=== PATIENT | female | born 1990 | race Caucasian/White ===

== ENCOUNTER 2016-06-26 00:12 | Outpatient (CLI) | payer BC, OTHER ==
[~2016-06-26] VITALS: Ht 172.7 cm; Wt 80.0 kg
[2016-06-26 01:17] LABS: BASO % 0.2 % (0.0-1.0); EOS # 0.2 K/mm3 (0.0-0.50); EOS % 1.8 % (0.0-3.0); LARGE UNSTAINED CELL # 0.2 K/mm3 (0.0-0.4); LARGE UNSTAINED CELL % 2.2 % (0.0-4.0); LYMPH # 1.4 K/mm3 (1.5-6.5); MEAN CORPUSCULAR HEMOGLOBIN 29.5 pg (27.0-33.0); MEAN CORPUSCULAR HGB CONC 33.9 g/dl (32.0-36.5); MEAN CORPUSCULAR VOLUME 86.8 fl (80.0-96.0); MONO # 0.6 K/mm3 (0.0-0.8); MONO % 5.3 % (0.0-5.0); NEUTROPHILS # 8.4 K/mm3 (1.8-7.7); NEUTROPHILS % 77.4 % (36.0-66.0); PLATELET COUNT, AUTOMATED 221 k/mm3 (150-450); RED CELL DISTRIBUTION WIDTH 12.4 % (11.5-14.5); WHITE BLOOD COUNT 10.9 K/mm3 (4.0-10.0)
[2016-06-26 01:26] LABS: INR 1.02
[2016-06-26] MEDS ORDERED: BETAMETHASONE SOLUSPAN 6MG/ML INJ 5ML (J0702) IM SCH (04:00)
[2016-06-26] MEDS ORDERED: ACETAMINOPHEN 500 MG TAB PO PRN (04:00)
[2016-06-26 07:31] VITALS: BP 118/75
[2016-06-26] MEDS ORDERED: PRENTAB9 PO (09:36)
== END 2016-06-26 09:25 | disposition home or self-care (01) ==
LOC: M LDO 00:12
PROVIDERS: ATTEND Obstetrics & Gynecology
DX: O26.853 Spotting complicating pregnancy, third trimester (principal); Z3A.34 34 weeks gestation of pregnancy
CPT/HCPCS: 36415; 59025; 76815; 85025; 85460; 85610; 85730; 96372; J0702

== ENCOUNTER 2016-06-27 06:22 | Outpatient (CLI) | payer BC, OTHER ==
[~2016-06-27 06:22] MED LIST: PRENTAB9 PO
[2016-06-27] MEDS ORDERED: BETAMETHASONE SOLUSPAN 6MG/ML INJ 5ML (J0702) IM ONE (06:30)
== END 2016-06-27 06:33 | disposition home or self-care (01) ==
LOC: M LDO 06:22
PROVIDERS: ATTEND Advanced Practice Midwife
DX: Z23 Encounter for immunization (principal); O47.03 False labor before 37 completed weeks of gestation, third trimester; Z3A.34 34 weeks gestation of pregnancy
CPT/HCPCS: 96372; J0702

== ENCOUNTER 2016-07-01 03:31 | Inpatient (IN) | payer BC, OTHER, MEDICAID ==
[~2016-07-01] VITALS: Ht 172.7 cm; Wt 80.0 kg
[2016-07-01] VITALS (25 sets, daily range): BP systolic 99–155; BP diastolic 53–98
[2016-07-01] MEDS ORDERED: RA C PO (04:00)
[2016-07-01] MEDS ORDERED: CETI1SYP16 PO (04:00)
[2016-07-01] MEDS ORDERED: COLA100C PO (04:00)
[2016-07-01] MEDS ORDERED: ACET50TA PO (04:00)
[2016-07-01] MEDS ORDERED: LACTATED RINGER'S 1000 ML IV STA (04:21)
[2016-07-01] MEDS ORDERED: LR 1,000 ML IV SCH (04:21)
[2016-07-01] MEDS ORDERED: PENICILLIN G POTASSIUM IV 5 MU in D5W MINI-BAG PLUS 100 ML IV STA (04:21)
[2016-07-01] MEDS ORDERED: PROMETHAZINE INJ 25 MG/ML VIAL (J2550) IV ONE ×3 (04:30→16:30)
[2016-07-01] MEDS ORDERED: BUTORPHANOL 2 MG/ML INJ (J0595) IV ONE ×3 (04:30→16:15)
[2016-07-01 04:58] LABS: MEAN CORPUSCULAR HEMOGLOBIN 29.9 pg (27.0-33.0); MEAN CORPUSCULAR HGB CONC 33.9 g/dl (32.0-36.5); MEAN CORPUSCULAR VOLUME 88.2 fl (80.0-96.0); RED CELL DISTRIBUTION WIDTH 12.8 % (11.5-14.5); WHITE BLOOD COUNT 13.6 K/mm3 (4.0-10.0)
[2016-07-01] MEDS: PENICILLIN G POTASSIUM IV 2.5 MU in D5W 100 ML IV SCH ×4 (09:04→20:58)
[2016-07-01] MEDS ORDERED: PROMETHAZINE INJ 25 MG/ML VIAL (J2550) IM ONE ×2 (10:00→16:15)
--- NOTE | 2016-07-01 10:00 | HPE ---
DATE OF ADMISSION: 07/01/2016 Ileana is a 26-year-old 1, para 0 at 35 weeks gestation with an estimated date of confinement (EDC) of 08/05/2016 based on last menstrual period and confirmed by first trimester ultrasound. She presents to labor and delivery today for onset of uncomfortable contractions approximately every 4 minutes. Positive bloody show. Fetus has been active. care was initiated at [facility] in the first trimester. course complicated by a history of asthma, third trimester bleeding episode approximately 5 days ago, unexplained, self limiting and resolved spontaneously. She is betamethasone complete, although Group B streptococcus (GBS) is unknown. OBSTETRICAL HISTORY: Primigravida. OBSTETRICAL LABORATORIES: Blood type O+, antibody screen negative, rubella immune, VDRL nonreactive. Urine culture no growth. Hep B surface antigen negative, HIV negative. Hep C antibody nonreactive. Gonorrhea and chlamydia negative. Quad screen negative. Gestational diabetic screening 92. GBS is unknown. PAST MEDICAL HISTORY: Asthma with rare inhaler use. Childhood varicella. SURGERIES: Cyst removed from the left breast and oral surgery. FAMILY HISTORY: Asthma, breast cancer, diabetes and hypertension. The patient is single; however, the father of the baby is at bedside and supportive. She is a prior smoker that quit approximately 3 years ago. She denies alcohol and drug use throughout the . No history of any sexually transmitted infections and denies history of abuse; physical, sexual and emotional. ALLERGIES: No known drug allergies. CURRENT MEDICATIONS: Include: - Ventolin inhaler as needed - Colace - Zyrtec - Zantac OBJECTIVE: Vital signs are stable. Temperature 97.7, pulse 90, respirations 18, blood pressure is 121/68. She is alert and oriented times three. She appears extremely uncomfortable and tenses and deep breathes with her contractions. heart rate 150 with moderate variability, positive accelerations, no decelerations observed. Contractions are not tracing on the external monitoring at this time. Her cervix is 4 to 5 cm dilated, 100% effaced, -3 station with bulging bag of water and a moderate amount of bloody show. Her abdomen is gravid, cephalic presentation confirmed by bedside ultrasound. Estimated weight 2800 grams. ASSESSMENT: 1. Intrauterine at 35 weeks gestation. heart rate category 1. 2. Active labor. PLAN: Admit the patient to labor and delivery. Laboratories have already been ordered and returned normal results, including GBS was collected this morning, although it will be approximately 48 hours before results are returned. The patient has had one dose of Stadol for labor coping and desires another dose of Stadol. She declines epidural at this time. I do anticipate a spontaneous vaginal delivery. The patient is aware of the potential for admission to the intensive care unit and Dr. Regalado, information resource consultant has been made aware of the patient's arrival to labor and delivery.
[2016-07-01] MEDS ORDERED: FENTANYL 2MCG/ML ROPIVACAINE 0.2% NACL 250 ML CADD As Ordered ONE (22:08)
[2016-07-01] MEDS ORDERED: EPIDURAL/PCA KEYS XX PRN (23:00)
[2016-07-01] MEDS ORDERED: EPIDURAL COMMENT XX SCH (23:00)
[2016-07-01] MEDS ORDERED: NALOXONE INJ 0.4 MG/1 ML VIAL (J2310) IV PRN (23:00)
[2016-07-01] MEDS ORDERED: FENTANYL/ROPIVACAINE/NACL CADD 250 ML EPIDURAL SCH (23:00)
[2016-07-01] MEDS ORDERED: diphenhydrAMINE INJ 50MG/ML VIAL (J1200) IV PRN (23:00)
[2016-07-01] MEDS ORDERED: REFRIGERATOR IV KEYS XX PRN (23:00)
[2016-07-01] MEDS ORDERED: ONDANSETRON 4MG/2ML VIAL (J2405) IV PRN (23:00)
[2016-07-01] MEDS ORDERED: LACTATED RINGER'S 1000 ML IV PRN (23:00)
[2016-07-02] VITALS (49 sets, daily range): BP systolic 99–141; BP diastolic 55–83
[2016-07-02] MEDS: PENICILLIN G POTASSIUM IV 2.5 MU in D5W 100 ML IV SCH ×2 (01:02→05:33)
[2016-07-02] MEDS ORDERED: OXYTOCIN DRIP 30 UNITS in APPROPRIATE DILUENT 1 EA IV SCH ×2 (06:30→09:26)
[2016-07-02 09:22] LABS: CORD GAS ABE V -8.6; CORD GAS HCO3 V 19.6 MEQ/L; CORD GAS O2 SAT V 51.1 %; CORD GAS PCO2 V 50.5 mmHg; CORD GAS PH V 7.207 UNITS; CORD GAS PO2 V 24.7 mmHg; CORD GAS SBC V 16.7 MEQ/L; CORD GAS TCO2 V 21.2 MEQ/L
[2016-07-02 09:23] LABS: CORD GAS ABE A -8.9; CORD GAS HCO3 A 20.8 MEQ/L; CORD GAS O2 SAT A 36.7 %; CORD GAS PCO2 A 60.4 mmHg; CORD GAS PH A 7.155 UNITS; CORD GAS PO2 A 20.7 mmHg; CORD GAS SBC A 16.1 MEQ/L; CORD GAS TCO2 A 22.7 MEQ/L
[2016-07-02] MEDS ORDERED: ACETAMINOPHEN 500 MG TAB PO PRN (09:30)
[2016-07-02] MEDS ORDERED: METHYLERGONOVINE MALEATE 0.2 MG TAB PO PRN (09:30)
[2016-07-02] MEDS ORDERED: MEASLES,MUMPS,RUBELLA VACCINE INJ (MMR-II) (90707) SC SCH (09:30)
[2016-07-02] MEDS ORDERED: DIBUCAINE 1% OINTMENT 30GM TOP PRN (09:30)
[2016-07-02] MEDS ORDERED: RHOGAM 300 MCG (1500 IU) INJ (J2790) IM SCH (09:30)
--- NOTE | 2016-07-02 10:07 | DN ---
DATE OF DELIVERY: 07/01/2016 Ileana is a 26-year-old 1, para 0-1-0-1 now, who was admitted to labor and delivery in active labor. She did have Stadol and Phenergan to cope with her labor and eventually requested an epidural. She had spontaneous rupture of membranes (SROM) for a large amount of clear fluid. She did progress to full dilation at 0735. She pushed to a normal spontaneous vaginal delivery of a live male in right occipitoanterior (JAMARCUS) position with restitution to left occipitotransverse (LOT) position over a midline episiotomy at 0856. the shoulders delivered sontaneously and corpus immediately followed. The cord was clamped times two and cut by myself. The was taken to warmer for resuscitation and evaluation by Dr. Romo, geriatrics physician. There was a spontaneous expulsion of an intact placenta with three-vessel cord by Chicas mechanism at 0901. Uterine hemostasis was achieved with uterine fundal massage and intravenous (IV) Pitocin rapid infusion. Estimated blood loss 200 mL. Perineum and vagina were inspected and noted to have bilateral labial lacerations, as well as the episiotomy. The episiotomy was repaired with 3-0 Rapide in the usual fashion. The labial laceration was repaired with interrupted sutures. The male weighed 5 pounds 15 ounces, 2682 grams. scores 7 and 9. The placenta will be sent to pathology. The family have named their son Macario, and mother plans to breastfeed her son. At the close of delivery, lap counts, instrument counts, and needle counts were correct and verified. [facility]
[2016-07-02] MEDS: IBUPROFEN 600 MG TAB PO PRN ×2 (10:24→20:07)
[2016-07-02] MEDS: DOCUSATE SODIUM 100 MG CAP PO PRN (20:07)
[2016-07-03 05:57] VITALS: BP 102/64
[2016-07-03] MEDS: PRENATAL VITAMIN TAB PO SCH (08:31)
[2016-07-03] MEDS: IBUPROFEN 600 MG TAB PO PRN ×2 (08:31→19:58)
[2016-07-03 18:17] VITALS: BP 148/79
[2016-07-03] MEDS: DOCUSATE SODIUM 100 MG CAP PO PRN (19:59)
[2016-07-04 05:30] VITALS: BP 114/65
[2016-07-04] MEDS: IBUPROFEN 600 MG TAB PO PRN (08:51)
[2016-07-04] MEDS: PRENATAL VITAMIN TAB PO SCH (08:52)
--- NOTE | 2016-07-04 09:50 | REP ---
RIGHT BREAST ULTRASOUND: 07/04/2016. Clinical history: Palpable lump right axilla when 4-5 months , just delivered. Now only tender with touch. States both grandmothers with breast cancer. She has had a prior negative left breast biopsy. Sonographic evaluation of the right axilla and axillary tail of the right breast shows no solid mass. There is heterogeneous breast tissue up to 3.9 cm long band representing axillary tail breast tissue without discrete mass, dilated duct, cyst or architectural distortion. Impression: 1. Right sided axillary tail breast tissue without discrete mass, adenopathy, cyst, dilated duct or other acute finding. This negative report should not deter further evaluation of a dominant or suspicious physical finding. BIRADS ACR category 1 negative breast ultrasound. Signed by Joe Rutledge MD 07/04/2016 05:15 P
[2016-07-04] MEDS ORDERED: IBUP-1114 PO (11:40)
== END 2016-07-04 14:00 | disposition home or self-care (01) | DRG 560 ==
LOC: M LDO 03:31 → M LDI 09:43 → M OBS 07-02 13:32
PROVIDERS: ADMIT Advanced Practice Midwife; ATTEND Advanced Practice Midwife
PROC: 10E0XZZ Delivery of Products of Conception, External Approach (ICD-10-PCS; principal; 2016-07-01)
PROC: 0W8NXZZ Division of Female Perineum, External Approach (ICD-10-PCS; 2016-07-01)
PROC: 0HQ9XZZ Repair Perineum Skin, External Approach (ICD-10-PCS; 2016-07-01)
DX: O60.14X0 Preterm labor third trimester with preterm delivery third trimester, not applicable or unspecified (principal); J45.909 Unspecified asthma, uncomplicated; O99.52 Diseases of the respiratory system complicating childbirth; Z37.0 Single live birth; Z3A.35 35 weeks gestation of pregnancy; Z80.3 Family history of malignant neoplasm of breast; Z83.3 Family history of diabetes mellitus; Z82.49 Family history of ischemic heart disease and other diseases of the circulatory system; Z83.6 Family history of other diseases of the respiratory system; Z87.891 Personal history of nicotine dependence; Z79.899 Other long term (current) drug therapy; O70.0 First degree perineal laceration during delivery

== ENCOUNTER → 2016-11-22 | Outpatient (REF) | payer OTHER, MEDICAID ==
[~2016-11-22] MED LIST changes: +ACET50TA PO; +CETI1SYP16 PO; +COLA100C5 PO; +IBUP-1114 PO; +RA C PO
== END ==
LOC: M LAB REF 17:28
PROVIDERS: ATTEND Advanced Practice Midwife
DX: Z12.4 Encounter for screening for malignant neoplasm of cervix (principal)

== ENCOUNTER 2018-11-22 12:59 | Day surgery (SDC) | payer BC, MEDICAID ==
[~2018-11-22] VITALS: Ht 172.7 cm; Wt 72.9 kg
[~2018-11-22 12:59] MED LIST changes: -ACET50TA PO; +CETI10TA8 PO; +MAPA500T2 PO; -RA C PO
[2018-11-22] MEDS ORDERED: ONDANSETRON 4MG/2ML VIAL (J2405) As Ordered ONE (13:42)
[2018-11-22] MEDS ORDERED: KETOROLAC 60 MG/2 ML VIAL (J1885) As Ordered ONE (13:42)
[2018-11-22] MEDS ORDERED: dexameTHASONE 4 MG/ML 1ML VIAL (J1100) As Ordered ONE (13:42)
[2018-11-22] MEDS ORDERED: MIDAZOLAM INJ 2 MG/2 ML VIAL (J2250) As Ordered ONE (13:43)
[2018-11-22] MEDS ORDERED: PROPOFOL 200 MG/20 ML VIAL As Ordered ONE ×2 (13:43→14:46)
[2018-11-22] MEDS ORDERED: fentaNYL 100 MCG/2 ML INJECTION (J3010) As Ordered ONE (13:43)
[2018-11-22] MEDS ORDERED: LIDOCAINE 2% INJ 100 MG/5 ML SDV (FOR ANES.) As Ordered ONE (13:43)
[2018-11-22] MEDS ORDERED: LIDOCAINE 1% SDV INJ 30 ML VIAL As Ordered ONE (13:56)
[2018-11-22] MEDS ORDERED: SCOPOLAMINE 1MG TRANSDERMAL PATCH As Ordered ONE (14:08)
[2018-11-22 14:27] LABS: HEMATOCRIT 37.5 % (36.0-47.0); HEMOGLOBIN 12.6 g/dl (12.0-15.5); MEAN CORPUSCULAR HEMOGLOBIN 30.4 pg (27.0-33.0); MEAN CORPUSCULAR HGB CONC 33.6 g/dl (32.0-36.5); MEAN CORPUSCULAR VOLUME 90.6 fl (80.0-96.0); PLATELET COUNT, AUTOMATED 250 10^3/uL (150-450); RED BLOOD COUNT 4.14 10^6/uL (4.00-5.40); WHITE BLOOD COUNT 7.6 10^3/uL (4.0-10.0)
[2018-11-22] MEDS ORDERED: SCOPOLAMINE 1MG TRANSDERMAL PATCH TOP ONE (14:30)
[2018-11-22] MEDS ORDERED: DOXYCYCLINE HYCLATE 100 MG TAB As Ordered ONE (15:40)
[2018-11-22] MEDS ORDERED: oxyCODONE 5MG TAB As Ordered ONE (15:42)
[2018-11-22] MEDS ORDERED: PROMETHAZINE INJ 25 MG/ML VIAL (J2550) IV PRN (15:45)
[2018-11-22] MEDS ORDERED: METOCLOPRAMIDE INJ 10MG/2ML VIAL (J2765) IV PRN (15:45)
[2018-11-22] MEDS ORDERED: oxyCODONE 5MG TAB PO PRN (15:45)
[2018-11-22] MEDS ORDERED: fentaNYL 100 MCG/2 ML INJECTION (J3010) IV PRN (15:45)
[2018-11-22] MEDS ORDERED: LR 1,000 ML IV SCH (15:45)
[2018-11-22 15:50] VITALS: BP 125/72
[2018-11-22] MEDS ORDERED: ACETAMINOPHEN 500 MG TAB PO ONE (16:00)
[2018-11-22] MEDS ORDERED: DOXYCYCLINE HYCLATE 100 MG TAB PO ONE (16:00)
--- NOTE | 2018-11-23 10:50 | RO ---
DATE OF PROCEDURE: 11/22/2018 PREOPERATIVE DIAGNOSIS: Missed . POSTOPERATIVE DIAGNOSIS: Missed . PROCEDURE: Dilatation, evacuation and curettage (DE and C). SURGEON: Matthias Gipson MD ENVIRONMENTAL PROTECTION SPECIALIST: ANESTHESIA: Local with sedation. ESTIMATED BLOOD LOSS: 10 mL. URINE OUTPUT: 100 mL. FINDINGS: Moderate amount of products of conception. OPERATIVE SUMMARY: The patient was taken to the operating room where IV sedation was given. She was prepped and draped in sterile fashion in dorsal lithotomy position. The bladder was emptied with a catheter. A speculum was placed in the vaginal. The anterior lip of the cervix was grasped with a tenaculum and the cervix was injected circumferentially with 20 mL of 1% lidocaine. The cervix was dilated. A 7 mm suction curette was placed through the internal os. Suction devices were activated. The curette was gently rotated until products of conception were noted to be coming through the suction tubing. Sharp curettage was performed. The uterine cavity was deemed t be empty. All instruments were removed. Sponge and instrument counts were correct.
== END 2018-11-22 16:49 | disposition home or self-care (01) ==
LOC: M SDC 12:59
PROVIDERS: ATTEND Specialist
DX: O02.1 Missed abortion (principal)
CPT/HCPCS: 36415; 59820; 85027; 88233; 88262; 88291; 88305; J1100; J1885; J2250; J2405; J3010

== ENCOUNTER → 2019-02-18 | Outpatient (CLI) | payer BC, MEDICAID | LOC: M LRY 11:24 | PROVIDERS: ATTEND Advanced Practice Midwife | DX: O20.0 Threatened abortion (principal) ==

== ENCOUNTER → 2019-02-20 | Outpatient (CLI) | payer BC, MEDICAID | LOC: M LRY 11:07 | PROVIDERS: ATTEND Advanced Practice Midwife | DX: O20.0 Threatened abortion (principal) ==

== ENCOUNTER → 2019-04-01 | Outpatient (CLI) | payer BC, MEDICAID ==
[2019-04-01 14:00] LABS: BASO % 0.6 % (0.0-1.0); EOS # 0.1 10^3/uL (0.0-0.5); HEMATOCRIT 36.6 % (36.0-47.0); HEMOGLOBIN 12.2 g/dl (12.0-15.5); LYMPH # 1.3 10^3/uL (1.5-5.0); LYMPH % 18.5 % (24.0-44.0); MEAN CORPUSCULAR HEMOGLOBIN 29.7 pg (27.0-33.0); MEAN CORPUSCULAR HGB CONC 33.3 g/dl (32.0-36.5); MEAN CORPUSCULAR VOLUME 89.1 fl (80.0-96.0); MONO # 0.5 10^3/uL (0.0-0.8); MONO % 6.8 % (0.0-5.0); NEUTROPHILS # 5.1 10^3/uL (1.5-8.5); NEUTROPHILS % 72.4 % (36.0-66.0); PLATELET COUNT, AUTOMATED 278 10^3/uL (150-450); RED BLOOD COUNT 4.11 10^6/uL (4.00-5.40)
[2019-04-01 14:57] LABS: HIV 1&2 SCREEN CENTAUR NEGATIVE (NEGATIVE); RUBELLA IgG QUALITATIVE IMMUNE (IMMUNE)
[2019-04-01 15:27] LABS: CHLAMYDIA DNA AMPLIFICATION NEGATIVE (NEGATIVE); GC DNA AMPLIFICATION NEGATIVE (NEGATIVE)
== END ==
LOC: M SMT 10:21
PROVIDERS: ATTEND Advanced Practice Midwife
DX: Z13.79 Encounter for other screening for genetic and chromosomal anomalies (principal)

== ENCOUNTER → 2019-06-05 | Outpatient (CLI) | payer BC, MEDICAID ==
--- NOTE | 2019-06-06 02:45 | REP ---
Clinical: Anatomical evaluation. Comparison: None . Findings: Examination demonstrates a single live intrauterine in transverse (head to maternal left) presentation. motion is identified by technologist. Placenta is noted anterior/fundal and grade zero without evidence for placenta previa or abruption. Amniotic fluid volume is normal. Cervix measures 3.2 cm in length and appears closed. No evidence for nuchal cord. Gestational age by current measurements 22 weeks 1 day with MARIA 10/08/2019 . FHR equals 130 beats per minute. BPD 5.6 cm 23 weeks 1 day HC 19.4 cm 21 weeks 4 days AC 18.2 cm 23 weeks 0 days FL 3.8 cm 22 weeks 1 day HL 3.6 cm 22 weeks 3 days HC/AC ratio 1.07 Estimated weight 515 grams ( 61st percentile). Anatomical assessment demonstrates normal structures including cranium, choroid plexus, cavum, cerebellum/posterior fossa, facial features, lungs, four-chamber heart/ventricular outflow tracts, diaphragm, stomach, cord insertion/three-vessel cord, kidneys/bladder, and extremities. Impression: 1. Single live intrauterine in transverse lie demonstrating appropriate estimated weight. 2. Limited evaluation of the spine. Remainder of the anatomical assessment is complete and normal.
== END ==
LOC: M WHC 09:55
PROVIDERS: ATTEND Advanced Practice Midwife
DX: Z34.92 Encounter for supervision of normal pregnancy, unspecified, second trimester (principal)

== ENCOUNTER → 2019-07-05 | Outpatient (CLI) | payer BC, MEDICAID ==
[2019-07-05 17:18] LABS: HEMATOCRIT 35.2 % (36.0-47.0); HEMOGLOBIN 11.5 g/dl (12.0-15.5); MEAN CORPUSCULAR HEMOGLOBIN 29.3 pg (27.0-33.0); MEAN CORPUSCULAR HGB CONC 32.7 g/dl (32.0-36.5); MEAN CORPUSCULAR VOLUME 89.6 fl (80.0-96.0); PLATELET COUNT, AUTOMATED 260 10^3/uL (150-450); RED BLOOD COUNT 3.93 10^6/uL (4.00-5.40); WHITE BLOOD COUNT 9.3 10^3/uL (4.0-10.0)
== END ==
LOC: M PLALAB 14:07
PROVIDERS: ATTEND Specialist
DX: Z34.82 Encounter for supervision of other normal pregnancy, second trimester (principal); Z3A.00 Weeks of gestation of pregnancy not specified

== ENCOUNTER → 2019-07-25 | Outpatient (REF) | payer BC, MEDICAID | LOC: M SFHCLERA 13:59 | PROVIDERS: ATTEND Nurse Practitioner Family | DX: R53.81 Other malaise (principal) ==

== ENCOUNTER → 2019-07-30 | Outpatient (CLI) | payer BC, MEDICAID ==
--- NOTE | 2019-07-30 18:42 | REP ---
Clinical: Anatomical evaluation. Comparison: 06/05/2019 . Findings: Examination demonstrates a single live intrauterine in breech presentation. motion is identified by technologist. Placenta is noted fundal and grade I without evidence for placenta previa or abruption. Amniotic fluid volume is normal. Cervix measures 3.4 cm in length and appears closed. No evidence for nuchal cord. Gestational age by first US 30 weeks 0 days with MARIA 10/08/2019 . Gestational age by current measurements 31 weeks 0 days with MARIA 10/01/2019 . FHR equals 129 beats per minute. Estimated weight 1627 grams ( 60th percentile). Anatomical assessment demonstrates normal structures including cranium, facial features, diaphragm, stomach, cord insertion/three-vessel cord, kidneys/bladder. Impression: 1. Single live intrauterine in breech presentation demonstrating appropriate interval growth. 2. Limited evaluation of the spine again noted due to positioning. In conjunction with prior examination remainder of the anatomical assessment is complete and normal. Electronically Signed by Stevan Slade MD 07/30/2019 06:33 P
== END ==
LOC: M WHC 09:57
PROVIDERS: ATTEND Specialist
DX: Z34.82 Encounter for supervision of other normal pregnancy, second trimester (principal)

== ENCOUNTER 2019-08-05 16:09 | Outpatient (CLI) | payer BC, MEDICAID ==
[2019-08-05] VITALS (7 sets, daily range): BP systolic 108–121; BP diastolic 60–74
[~2019-08-05] VITALS: Ht 172.7 cm; Wt 82.7 kg
[2019-08-05] MEDS ORDERED: D5W/LR 1,000 ML IV SCH (16:23)
[2019-08-05] MEDS ORDERED: MAG Sulf (L&D) 4 GM/100 ML 4 GM in IV 1 EA IV ONE ×2 (16:30→17:00)
[2019-08-05] MEDS ORDERED: AZITHROMYCIN 250 MG TAB PO ONE ×2 (16:30→18:00)
[2019-08-05] MEDS ORDERED: AMPICILLIN SOD 2 GM in D5W MINI-BAG PLUS 100 ML IV SCH ×2 (16:30→18:00)
[2019-08-05] MEDS ORDERED: BETAMETHASONE SOLUSPAN 6MG/ML INJ 5ML (J0702) As Ordered ONE (16:45)
[2019-08-05] MEDS ORDERED: CALCIUM GLUCONATE 1,000 MG in D5W MINI-BAG PLUS 100 ML IV PRN (16:45)
[2019-08-05] MEDS ORDERED: MAGNESIUM SULFATE 4% INJ 20GM/500ML (40MG/ML) (J3475) As Ordered ONE (16:45)
[2019-08-05] MEDS ORDERED: MAGNESIUM *L&D* 4 GM/100 ML BAG (40MG/ML) (J3475) As Ordered ONE (16:45)
[2019-08-05] MEDS ORDERED: MAG Sulf (OBGYN) 20GM/500ML 20,000 MG in IV 1 EA IV SCH ×2 (16:50→18:00)
[2019-08-05] MEDS ORDERED: LR 1,000 ML IV SCH (17:00)
[2019-08-05] MEDS ORDERED: BETAMETHASONE SOLUSPAN 6MG/ML INJ 5ML (J0702) IM ONE ×2 (17:00)
[2019-08-05] MEDS ORDERED: PRIL20TA2 PO (17:48)
[2019-08-05 18:05] LABS: AMPHETAMINES URINE REFLEX NEGATIVE (NEGATIVE); BARBITURATES URINE REFLEX NEGATIVE (NEGATIVE); BENZODIAZEPINES URINE REFLEX NEGATIVE (NEGATIVE); CANNABINOIDS URINE REFLEX NEGATIVE (NEGATIVE); COCAINE METABOLITE URINE REFLE NEGATIVE (NEGATIVE); METHADONE URINE REFLEX NEGATIVE (NEGATIVE); OPIATES URINE REFLEX NEGATIVE (NEGATIVE); PHENCYCLIDINE URINE REFLEX NEGATIVE (NEGATIVE)
[2019-08-05 18:22] LABS: HEMOGLOBIN 11.7 g/dl (12.0-15.5); MEAN CORPUSCULAR HEMOGLOBIN 29.2 pg (27.0-33.0); MEAN CORPUSCULAR HGB CONC 33.4 g/dl (32.0-36.5); MEAN CORPUSCULAR VOLUME 87.3 fl (80.0-96.0); PLATELET COUNT, AUTOMATED 252 10^3/uL (150-450); RED BLOOD COUNT 4.01 10^6/uL (4.00-5.40); WHITE BLOOD COUNT 11.1 10^3/uL (4.0-10.0)
== END 2019-08-05 19:24 | disposition short-term general hospital (02) ==
LOC: M LDO 16:09
PROVIDERS: ATTEND Advanced Practice Midwife
DX: O42.913 Preterm premature rupture of membranes, unspecified as to length of time between rupture and onset of labor, third trimester (principal); Z3A.30 30 weeks gestation of pregnancy
CPT/HCPCS: 59025; 80307; 85027; 87081; 96365; 96367; 96372; G0378; G0463; J0702; J3475

== ENCOUNTER → 2020-07-07 | Outpatient (REF) | payer BC, MEDICAID ==
[~2020-07-07] MED LIST changes: +PRIL20TA2 PO
== END ==
LOC: M SFHCWAGY 18:52
PROVIDERS: ATTEND Obstetrics & Gynecology
DX: Z12.4 Encounter for screening for malignant neoplasm of cervix (principal)

== ENCOUNTER → 2020-07-27 | Outpatient (CLI) | payer BC, MEDICAID ==
--- NOTE | 2020-07-27 11:05 | REP ---
INDICATION: TRAPEZIUS MUSCLE SPASM, BILATERAL NECK PAIN COMPARISON: None. TECHNIQUE: AP, lateral, flexion/extension, bilateral oblique, and open-mouth views. FINDINGS: Alignment and lordosis is maintained. There is no evidence for acute fracture / compression injury or subluxation. No significant degenerative changes are appreciated. Oblique views demonstrate patent neural foramen. Open mouth view demonstrates normal C1-C2 articulation and odontoid process. IMPRESSION: Normal cervical spine series. <Electronically signed by Stevan Slade > 07/27/20 [id number]
== END ==
LOC: M WUC 09:54
PROVIDERS: ATTEND Family Medicine
DX: M62.838 Other muscle spasm (principal)

== ENCOUNTER → 2020-07-27 | Outpatient (CLI) | payer BC, MEDICAID ==
--- NOTE | 2020-07-27 09:58 | REP ---
INDICATION: GANGLION. COMPARISON: None. TECHNIQUE: AP, lateral, oblique views of the right wrist FINDINGS: Osseous structures, joint spaces, and surrounding soft tissues appear normal. No obvious soft tissue mass lesion appreciated. No evidence for acute or healed injury. IMPRESSION: Normal right wrist radiographs. No obvious soft tissue lesion identified. <Electronically signed by Stevan Slade > 07/27/20 [id number]
== END ==
LOC: M SOG 09:18
PROVIDERS: ATTEND Orthopaedic Surgery Sports Medicine
DX: M67.431 Ganglion, right wrist (principal)

== ENCOUNTER → 2022-06-26 | Outpatient (REF) | payer BC, MEDICAID ==
[~2022-06-26] MED LIST changes: +CETI-25 PO; -CETI10TA8 PO
== END ==
LOC: M LAB REF 18:55
PROVIDERS: ATTEND Physician Assistant
DX: J02.9 Acute pharyngitis, unspecified (principal)

== ENCOUNTER → 2022-09-23 | Outpatient (CLI) | payer OTHER | LOC: M PLALAB 11:58 | PROVIDERS: ATTEND Obstetrics & Gynecology | DX: Z80.3 Family history of malignant neoplasm of breast (principal) ==

== ENCOUNTER → 2022-09-23 | Outpatient (CLI) | payer MEDICAID, OTHER | LOC: M WHC 11:16 | PROVIDERS: ATTEND Obstetrics & Gynecology | DX: R10.2 Pelvic and perineal pain (principal) ==

== ENCOUNTER → 2022-10-31 | Outpatient (CLI) | payer OTHER | LOC: M WHC 09:47 | PROVIDERS: ATTEND Obstetrics & Gynecology | DX: Z12.31 Encounter for screening mammogram for malignant neoplasm of breast (principal) ==

== ENCOUNTER → 2022-11-17 | Outpatient (CLI) | payer OTHER | LOC: M WHC 09:44 | PROVIDERS: ATTEND Obstetrics & Gynecology | DX: Z80.3 Family history of malignant neoplasm of breast (principal) ==

== ENCOUNTER → 2023-08-05 | Outpatient (REF) | payer OTHER | LOC: M LAB REF 17:40 | PROVIDERS: ATTEND Physician Assistant Medical | DX: B34.9 Viral infection, unspecified (principal) ==

== ENCOUNTER → 2023-08-10 | Outpatient (CLI) | payer OTHER ==
[2023-08-10 17:38] LABS: HEMATOCRIT 33.2 % (36.0-47.0); HEMOGLOBIN 11.2 g/dl (12.0-15.5); MEAN CORPUSCULAR HEMOGLOBIN 29.9 pg (27.0-33.0); MEAN CORPUSCULAR HGB CONC 33.7 g/dl (32.0-36.5); MEAN CORPUSCULAR VOLUME 88.8 fl (80.0-96.0); PLATELET COUNT, AUTOMATED 269 10^3/uL (150-450); RED BLOOD COUNT 3.74 10^6/uL (4.00-5.40); WHITE BLOOD COUNT 8.5 10^3/uL (4.0-10.0)
[2023-08-10 18:40] LABS: HIV 1&2 SCREEN NEGATIVE (NEGATIVE)
[2023-08-10 18:49] LABS: HEPATITIS C VIRUS ABY INDEX < 0.02 INDEX (<0.8)
[2023-08-10 19:46] LABS: GC DNA AMPLIFICATION NEGATIVE (NEGATIVE)
== END ==
LOC: M PLALAB 15:50
PROVIDERS: ATTEND Obstetrics & Gynecology
DX: O34.211 Maternal care for low transverse scar from previous cesarean delivery (principal)

== ENCOUNTER → 2023-08-11 | Outpatient (CLI) | payer OTHER | LOC: M WHC 10:48 | PROVIDERS: ATTEND Obstetrics & Gynecology | DX: O09.212 Supervision of pregnancy with history of pre-term labor, second trimester (principal); Z3A.16 16 weeks gestation of pregnancy ==

== ENCOUNTER → 2023-09-01 | Outpatient (CLI) | payer OTHER | LOC: M WHC 09:34 | PROVIDERS: ATTEND Specialist | DX: Z34.82 Encounter for supervision of other normal pregnancy, second trimester (principal) ==

== ENCOUNTER → 2023-11-01 | Outpatient (CLI) | payer OTHER ==
[2023-11-01 13:45] LABS: HEMATOCRIT 36.1 % (36.0-47.0); MEAN CORPUSCULAR HEMOGLOBIN 30.2 pg (27.0-33.0); MEAN CORPUSCULAR HGB CONC 33.2 g/dl (32.0-36.5); MEAN CORPUSCULAR VOLUME 90.9 fl (80.0-96.0); PLATELET COUNT, AUTOMATED 244 10^3/uL (150-450); RED BLOOD COUNT 3.97 10^6/uL (4.00-5.40); WHITE BLOOD COUNT 8.1 10^3/uL (4.0-10.0)
== END ==
LOC: M PLALAB 08:35
PROVIDERS: ATTEND Advanced Practice Midwife
DX: O09.892 Supervision of other high risk pregnancies, second trimester (principal)

== ENCOUNTER → 2023-11-22 | Outpatient (REF) | payer OTHER | LOC: M SFHCWAGY 14:48 | PROVIDERS: ATTEND Obstetrics & Gynecology | DX: R10.2 Pelvic and perineal pain (principal) ==

== ENCOUNTER 2023-11-30 21:12 | Outpatient (CLI) | payer OTHER ==
[2023-12-01 00:53] LABS: Trichomonas vaginalis (AMP) NOT DETECTED (NEGATIVE)
[2023-12-01 12:06] LABS: GC DNA AMPLIFICATION NEGATIVE (NEGATIVE)
== END 2023-12-01 00:31 | disposition home or self-care (01) ==
LOC: M LDO 21:12
PROVIDERS: ATTEND Obstetrics & Gynecology
DX: O47.03 False labor before 37 completed weeks of gestation, third trimester (principal); O34.219 Maternal care for unspecified type scar from previous cesarean delivery; Z3A.32 32 weeks gestation of pregnancy; Z87.51 Personal history of pre-term labor
CPT/HCPCS: 59025; 81001; 82731; 87086; 87661; 87810; 87850; G0463

== ENCOUNTER 2023-12-25 00:43 | Inpatient (IN) | payer OTHER ==
[2023-12-25] VITALS (9 sets, daily range): BP systolic 103–124; BP diastolic 57–65; TEMP 97.8; O2SAT 96–100
[~2023-12-25] VITALS: Ht 172.7 cm; Wt 91.5 kg
[2023-12-25] MEDS ORDERED: CETI5SOL3 PO (01:15)
[2023-12-25] MEDS ORDERED: TRANEXAMIC ACID INJection 1,000 MG in NS 100 ML IV PRN (01:35)
[2023-12-25] MEDS ORDERED: LR 1,000 ML IV SCH (01:35)
[2023-12-25] MEDS ORDERED: CARBOPROST TROMETHAMINE 250 MCG/ML AMP IM PRN (01:35)
[2023-12-25] MEDS ORDERED: METHYLERGONOVINE MALEATE 0.2MG/ML 1ML VIAL IM PRN (01:35)
[2023-12-25] MEDS ORDERED: BETAMETHASONE SOLUSPAN 6MG/ML 5ML VIAL IM STA (01:42)
[2023-12-25 02:10] LABS: HEMATOCRIT 33.7 % (36.0-47.0); HEMOGLOBIN 11.4 g/dl (12.0-15.5); MEAN CORPUSCULAR HEMOGLOBIN 30.3 pg (27.0-33.0); MEAN CORPUSCULAR HGB CONC 33.8 g/dl (32.0-36.5); MEAN CORPUSCULAR VOLUME 89.6 fl (80.0-96.0); PLATELET COUNT, AUTOMATED 216 10^3/uL (150-450); RED BLOOD COUNT 3.76 10^6/uL (4.00-5.40); WHITE BLOOD COUNT 7.5 10^3/uL (4.0-10.0)
[2023-12-25] MEDS: ceFAZolin SOD 2 GM in IV 1 EA IV ONE (02:25)
[2023-12-25] MEDS: AZITHROMYCIN INJ 500 MG, VIAL MATE ADAPTER 1 EACH in NS 250 ML IV ONE (02:25)
[2023-12-25] MEDS: LACTATED RINGER'S 1000 ML IV STA (02:25)
[2023-12-25] MEDS: BICITRA 30ML SOLN UDC PO ONE (02:25)
[2023-12-25] MEDS ORDERED: MORPHINE PRES-FREE INJ 10 MG/10 ML VIAL As Ordered ONE (02:30)
[2023-12-25] MEDS ORDERED: PHENYLephrine 500MCG 5ML (100MCG/ML) SYRINGE As Ordered ONE (02:31)
[2023-12-25] MEDS ORDERED: OXYTOCIN 30UNITS IN 0.9% NaCl 500ML IV BAG As Ordered ONE (02:31)
[2023-12-25] MEDS ORDERED: ePHEDrine SULFATE 25 MG/5 ML(5MG/ML) SYRINGE As Ordered ONE (02:31)
[2023-12-25] MEDS ORDERED: ONDANSETRON 4MG 2ML VIAL As Ordered ONE (02:54)
[2023-12-25] MEDS ORDERED: KETOROLAC 60MG 2ML VIAL As Ordered ONE (02:54)
[2023-12-25] MEDS ORDERED: **NOTE PATIENT COMMENT** MISC XX SCH (03:15)
[2023-12-25] MEDS ORDERED: NALBUPHINE HCL 1MG/0.1ML (100MG/10ML) MDV IV PRN (03:15)
[2023-12-25] MEDS ORDERED: ONDANSETRON 4MG 2ML VIAL IV PRN (03:15)
[2023-12-25] MEDS: SLF 3 ML SYR IV SCH (03:15)
[2023-12-25] MEDS ORDERED: NALOXONE INJ 0.4MG/1ML VIAL IV PRN ×2 (03:15)
[2023-12-25] MEDS ORDERED: diphenhydrAMINE 50MG/ML VIAL IV PRN (03:15)
[2023-12-25] MEDS ORDERED: METOCLOPRAMIDE INJ 10MG/2ML VIAL IV PRN (03:15)
[2023-12-25 04:11] LABS: HEPATITIS C VIRUS ABY INDEX 0.02 INDEX (<0.8)
[2023-12-25] MEDS ORDERED: ACETAMINOPHEN TAB 650MG DOSE (2X325MG) PO PRN (05:30)
[2023-12-25] MEDS ORDERED: RHO(D) IMMUNE GLOBULIN/MALTOSE 500MCG(2500IU)/2.2ML VIAL (WINRHO) IM SCH (05:30)
[2023-12-25] MEDS ORDERED: ACETAMINOPHEN 500 MG TAB PO PRN (05:30)
[2023-12-25] MEDS: OXYTOCIN DRIP 30 UNITS in IV 1 EA IV SCH (06:38)
[2023-12-25] MEDS: LR 1,000 ML IV SCH (06:44)
[2023-12-25] MEDS: PRENATAL VITAMINS CHEWABLE TABLET PO SCH (09:00)
[2023-12-25] MEDS: KETOROLAC 30 MG/ML 1ML VIAL IV SCH (09:16)
[2023-12-25] MEDS ORDERED: IBUP80TA PO (09:23)
[2023-12-25] MEDS ORDERED: COLA100C5 PO (09:23)
[2023-12-25] MEDS: PERCOCET 5MG/325MG TAB PO PRN (16:00)
[2023-12-25] MEDS ORDERED: FAMO1TAB11 PO (20:23)
[2023-12-26] MEDS ORDERED: UNRESOLVED CLARIFICATION ENTRY XX SCH (00:01)
[2023-12-26 02:00] VITALS: BP 120/71; O2SAT 97
[2023-12-26] MEDS: PERCOCET 5MG/325MG TAB PO PRN (02:18)
[2023-12-26] MEDS: SIMETHICONE 80MG CHEW TAB PO PRN (02:23)
[2023-12-26] MEDS: IBUPROFEN 800 MG TAB PO SCH (04:53)
[2023-12-26] MEDS ORDERED: IBUPROFEN 600MG TAB PO PRN (05:00)
[2023-12-26 06:11] VITALS: BP 108/58; O2SAT 98
[2023-12-26 07:53] LABS: HEMATOCRIT 30.8 % (36.0-47.0); HEMOGLOBIN 10.2 g/dl (12.0-15.5); MEAN CORPUSCULAR HEMOGLOBIN 30.1 pg (27.0-33.0); MEAN CORPUSCULAR HGB CONC 33.1 g/dl (32.0-36.5); MEAN CORPUSCULAR VOLUME 90.9 fl (80.0-96.0); PLATELET COUNT, AUTOMATED 177 10^3/uL (150-450); RED BLOOD COUNT 3.39 10^6/uL (4.00-5.40); WHITE BLOOD COUNT 10.1 10^3/uL (4.0-10.0)
[2023-12-26 10:00] VITALS: BP 111/62; O2SAT 97
[2023-12-26 13:50] VITALS: BP 122/76; O2SAT 98
[2023-12-26] MEDS: PERCOCET 5MG/325MG TAB PO ONE (17:18)
[2023-12-26 18:00] VITALS: BP 109/59; O2SAT 96
[2023-12-26] MEDS: DOCUSATE SODIUM 100MG CAPSULE PO PRN (20:54)
[2023-12-26 22:00] VITALS: BP 125/66; O2SAT 97
[2023-12-27 02:00] VITALS: BP 100/59; O2SAT 98
[2023-12-27 06:00] VITALS: BP 124/70; O2SAT 100
[2023-12-27] MEDS: MEASLES,MUMPS,RUBELLA VACCINE INJ (MMR-II) SC.IMMUN ONE (07:08)
== END 2023-12-27 15:34 | disposition home or self-care (01) | DRG 540 ==
LOC: M LDO 00:43 → M LDI 01:29 → M OBS 05:51
PROVIDERS: ADMIT Obstetrics & Gynecology; ATTEND Obstetrics & Gynecology
PROC: 10D00Z1 Extraction of Products of Conception, Low, Open Approach (ICD-10-PCS; principal; 2023-12-25 02:20)
DX: O60.14X0 Preterm labor third trimester with preterm delivery third trimester, not applicable or unspecified (principal); Z37.0 Single live birth; Z3A.35 35 weeks gestation of pregnancy; O34.211 Maternal care for low transverse scar from previous cesarean delivery

== ENCOUNTER → 2024-12-02 | Outpatient (CLI) | payer OTHER ==
[~2024-12-02] MED LIST changes: +CETI5SOL3 PO; +FAMO1TAB11 PO; +IBUP80TA PO
== END ==
LOC: M RAD 16:12
PROVIDERS: ATTEND Advanced Practice Midwife
DX: O20.9 Hemorrhage in early pregnancy, unspecified (principal); Z3A.01 Less than 8 weeks gestation of pregnancy; N83.201 Unspecified ovarian cyst, right side; O34.81 Maternal care for other abnormalities of pelvic organs, first trimester

== ENCOUNTER → 2025-01-09 | Outpatient (CLI) | payer OTHER ==
[2025-01-09 14:12] LABS: PLATELET COUNT, AUTOMATED 264 10^3/uL (150-450)
[2025-01-09 15:13] LABS: HIV 1&2 SCREEN NEGATIVE (NEGATIVE)
[2025-01-09 15:21] LABS: HEPATITIS C VIRUS ABY INDEX < 0.02 INDEX (<0.8)
[2025-01-09 16:46] LABS: Trichomonas vaginalis (AMP) NOT DETECTED (NEGATIVE)
[2025-01-09 17:10] LABS: GC DNA AMPLIFICATION NEGATIVE (NEGATIVE)
== END ==
LOC: M PLALAB 11:53
PROVIDERS: ATTEND Obstetrics & Gynecology
DX: O34.211 Maternal care for low transverse scar from previous cesarean delivery (principal)

== ENCOUNTER → 2025-03-13 | Outpatient (CLI) | payer OTHER | LOC: M WHC 12:02 | PROVIDERS: ATTEND Obstetrics & Gynecology | DX: Z34.80 Encounter for supervision of other normal pregnancy, unspecified trimester (principal) ==

== ENCOUNTER → 2025-04-15 | Outpatient (CLI) | payer OTHER ==
[2025-04-15 17:33] LABS: GLUCOSE CHALLENGE TEST 1 HOUR 90 MG/DL (LESS THAN 140)
[2025-04-15 17:34] LABS: PLATELET COUNT, AUTOMATED 265 10^3/uL (150-450)
[2025-04-15 18:08] LABS: HIV 1&2 SCREEN NEGATIVE (NEGATIVE)
[2025-04-15 18:16] LABS: HEPATITIS C VIRUS ABY INDEX < 0.02 INDEX (<0.8)
[2025-04-15 18:38] LABS: Trichomonas vaginalis (AMP) NOT DETECTED (NEGATIVE)
[2025-04-15 19:01] LABS: GC DNA AMPLIFICATION NEGATIVE (NEGATIVE)
== END ==
LOC: M PLALAB 14:09
PROVIDERS: ATTEND Advanced Practice Midwife
DX: Z34.92 Encounter for supervision of normal pregnancy, unspecified, second trimester (principal)